=== PATIENT | female | born 1950 | race Caucasian/White ===

== ENCOUNTER → 2023-05-01 08:22 | Outpatient (BNVA) | payer MEDICARE, SELFPAY | PROVIDERS: Visit Provider Nurse Practitioner Family | DX: Z01.818 Encounter for other preprocedural examination (principal) | CPT/HCPCS: 99202 ==

== ENCOUNTER 2023-10-17 07:35 | Day surgery (SDC) | payer MEDICARE, SELFPAY ==
[2023-10-15 15:48] VITALS: BMI 28.4
--- NOTE | 2023-10-16 11:43 | P.CONAN_ITS ---
Documented by User: Celestina Ty NP 10/16/23 11:45 HPI - Anesthesia Eval Consult details Narrative: 72yo F for Colonoscopy [facility] Past Medical History Medical History Macular degeneration Colon polyps Hyperlipidemia Vitamin D2 deficiency Family History Family History (Updated 05/01/23 @ 08:30 by Chapincito Azevedo) Mother Cancer of blood vessel Father Cancer of blood vessel Heart disease Brother Cancer of blood vessel Brother Prostate cancer Brother Prostate cancer Surgical History Surgical History H/O colonoscopy Social History Social History (Updated 05/01/23 @ 08:28 by Chapincito Azevedo) Household Members: None Alcohol intake: current Patient Tobacco Use Status: Former Tobacco user Quit Date: 10 yrs ago Use of substances other than those prescribed or required for medical reasons: Yes Substance Use Type Other:: edibles Substance Use Frequency: Occasionally Are you DNR?: No Advance Directives: No Advance Directives Information Provided: Yes Meds Allergies Allergy/AdvReac Type Severity Reaction Status Date / Time No Known Allergies Allergy Verified 10/17/23 08:17 Home Medications Medication Instructions Recorded Confirmed Last Taken Type rosuvastatin 5 mg tablet 5 mg PO DAILY 05/01/23 10/15/23 Unknown History multivitamin 1 tab PO DAILY 10/17/23 10/17/23 Unknown History Exam Height,Weight and Vital Signs: Height 5 ft 9.5 in Weight 88.451 kg Assessment and Plan Assessment Anesthesia Assessment: Chart Reviewed Documented by User: Leanne Juan MD 10/17/23 09:16 [facility] Past Medical History Medical History Macular degeneration Colon polyps Hyperlipidemia Vitamin D2 deficiency Family History Family History (Updated 05/01/23 @ 08:30 by Chapincito Azevedo) Mother Cancer of blood vessel Father Cancer of blood vessel Heart disease Brother Cancer of blood vessel Brother Prostate cancer Brother Prostate cancer Family history of problems with anesthesia: No Surgical History Surgical History H/O colonoscopy History of Problems with Anesthesia: No Social History Social History (Updated 05/01/23 @ 08:28 by Chapincito Azevedo) Household Members: None Alcohol intake: current Patient Tobacco Use Status: Former Tobacco user Quit Date: 10 yrs ago Use of substances other than those prescribed or required for medical reasons: Yes Substance Use Type Other:: edibles Substance Use Frequency: Occasionally Are you DNR?: No Advance Directives: No Advance Directives Information Provided: Yes Meds Allergies Allergy/AdvReac Type Severity Reaction Status Date / Time No Known Allergies Allergy Verified 10/17/23 08:17 Home Medications Medication Instructions Recorded Confirmed Last Taken Type rosuvastatin 5 mg tablet 5 mg PO DAILY 05/01/23 10/15/23 Unknown History multivitamin 1 tab PO DAILY 10/17/23 10/17/23 Unknown History Exam Airway Mallampati Class: II (caps laterally, perm bridge) TM Dist: >3cm Neck ROM: Full Heart: rrr Lungs: cta Assessment and Plan Assessment Anesthesia Assessment: Anesthesia Plan Discussed Final Anesthetic Review Family History of Problems with Anesthesia: No History of Problems with Anesthesia: No NPO: Yes ASA Class: II Final Preanesthetic Review: No Changes in Pt Med Stat, Meds/Allgs Chart Reviewed and Consent Obtained/Reviewed Patient Risk: Intermediate Procedure Risk: Intermediate Anesthetic Plan Anesthetic Plan: MAC: Disposition: Standard PACU
[2023-10-17 08:18] VITALS: BMI 27.4
[2023-10-17 08:23] VITALS: BP 137/69; PULSE 66; RESP 15; TEMP 36.8; O2SAT 95
[2023-10-17] MEDS: Lactated Ringers 1,000 ML 100 ML IVCONT (08:49)
--- NOTE | 2023-10-17 09:14 | P.OP_ITS ---
Operative Note Operative Note Date of Service: 10/17/23 Narrative: Operative Information Procedure Description: Colonoscopy Indication: screening Anesthesia: MAC COLONOSCOPY Instrument: Olympus variable stiffness pediatric scope 190L Colonoscopy Monitoring: Vital signs and clinical assessment, continuous EKG monitoring, Pulse oximetry, Carbon Dioxide monitoring and blood pressure monitoring were done throughout the procedure. Colon withdrawal time was 8 minutes. Procedure: The patient was placed in the left lateral decubitis position and pre-procedure medications were administered. After a digital rectal examination of the ano-rectum, the video colonoscope was inserted into the rectum and advanced through the colon to the cecum/TI. The colonoscope was slowly withdrawn in a retrograde panoramic fashion and the colon mucosa was carefully examined including a retroflexed view of the rectum. Findings and interventions are described below. Procedure Difficulty: easy Findings: Terminal Ileum-normal Cecum:normal Ascending Colon: normal Transverse Colon -normal Descending Colon:normal Sigmoid Colon: 6-8 mm sessile polyp removed with cold snare Rectum: Retroflexion with small internal hemorrhoids, grade I Anorectum - normal Colon preparation: [place] Bowel Preparation Scale Right colon; 2 Transverse colon: 3 Left colon; 3 (0 = Unprepared colon segment with mucosa not seen due to solid stool that cannot be cleared. 1 = Portion of mucosa of the colon segment seen, but other areas of the colon segment not well seen due to staining, residual stool and/or opaque liquid. 2 = Minor amount of residual staining, small fragments of stool and/or opaque l iquid, but mucosa of colon segment seen well. 3 = Entire mucosa of colon segment seen well with no residual staining, small fragments of stool or opaque liquid) Impression and Post Procedure Diagnosis: polyp internal hemorrhoids Plan: High fiber diet leaflet Avoid straining at stool, epsom salts and sitz bath, anusol supps or cream Repeat Colonoscopy in 5 years due to adenomatous polyp or earlier if clinically indicated Above findings were reviewed with the patient and relevant handouts were provided if indicated.
--- NOTE | 2023-10-17 09:14 | MHC.SHP ---
Pre-Procedural Eval Section A Date of Service: 10/17/23 Section B Chief Complaint: Encounter for screening for malignant neoplasm of Relevant Family History (Specify if Yes): No Relevant Social History: None Present Medications: see Short Stay Collaborative assessment Medical History: Significant History (Macular degeneration Colon polyps Hyperlipidemia Vitamin D2 deficiency) History of Previous Operations: Relevant previous surgery/procedure and date(s) (colonoscopy) Allergies: Allergies Allergy/AdvReac Type Severity Reaction Status Date / Time No Known Allergies Allergy Verified 10/17/23 08:17 Review of Systems Sugical H&P ROS: Negative: Constitution, Cardiovascular, Respiratory, Neurological, Psychiatric, Hem-Onc, Allergic/Immunologic, Gastrointestinal, Genitourinary, Musculoskeletal, Integumentary, Endocrine and Eyes/Ears/Nose/Throat Exam Surgical H&P Exam: Normal: HEENT, Normal: Heart, Normal: Lungs, Normal: Extremities, Normal: Abdomen, Normal: Skin and Normal: Neurological Plan Diagnosis/Plan: Unchanged I have reviewed the history and physical and performed a pertinent physical examination on my patient. No changes have occurred unless specified. Time Spent With Patient Time: Total time managing care of this patient today ____ minutes.
[2023-10-17 09:50] VITALS: BP 71/39; PULSE 64; RESP 16; TEMP 36.4; O2SAT 96
[2023-10-17 09:55] VITALS: BP 90/54; PULSE 64; RESP 16; O2SAT 97
[2023-10-17 10:05] VITALS: BP 103/65; PULSE 68; RESP 16; O2SAT 98
[2023-10-17 10:20] VITALS: BP 126/59; PULSE 53; RESP 16; TEMP 36.2; O2SAT 100
== END 2023-10-17 10:30 | disposition home or self-care (01) ==
PROVIDERS: Visit Provider Internal Medicine Gastroenterology
PROC: 0DJD8ZZ Inspection of Lower Intestinal Tract, Via Natural or Artificial Opening Endoscopic (ICD-10-PCS; CPT 45378; principal; 2023-10-17 09:30)
DX: Z12.11 Encounter for screening for malignant neoplasm of colon (principal); D12.5 Benign neoplasm of sigmoid colon; K64.0 First degree hemorrhoids; Z86.010 Personal history of colon polyps; E78.5 Hyperlipidemia, unspecified; E55.9 Vitamin D deficiency, unspecified; Z79.02 Long term (current) use of antithrombotics/antiplatelets; Z79.899 Other long term (current) drug therapy
CPT/HCPCS: 45385; 88305; J2704

== ENCOUNTER → 2023-10-17 07:35 | Outpatient (BNV) | payer MEDICARE, SELFPAY | PROVIDERS: Visit Provider Internal Medicine Gastroenterology | DX: Z12.11 Encounter for screening for malignant neoplasm of colon (principal); D12.5 Benign neoplasm of sigmoid colon; K64.0 First degree hemorrhoids | CPT/HCPCS: 45385 ==